=== PATIENT | male | born 1960 | race Two or more races ===

== ENCOUNTER 2024-08-24 09:20 | Emergency (ER) | payer MEDICAID, SELFPAY ==
--- NOTE | 2024-08-24 | XR_ITS ---
MRI abdomen, without contrast. MRCP Date and time of exam: August 24, 2024, 1721 hours INDICATIONS: Elevated total bilirubin, abdominal pain nausea vomiting beginning 2 weeks ago Technique: Multiple axial and coronal images of the abdomen have been obtained with the Siemens 1.5T MRI scanner. Images obtained included T1 weighted transverse images, T2-weighted transverse images, T2-weighted transverse images fat-suppressed, T2 weighted haste fat suppressed transverse images, T1 weighted images, in and out of phase images, T2-weighted coronal images, breath hold, T2 weighted haze coronal images as well as T2 weighted coronal thick slab images, MRCP. Findings: Small benign liver cysts Small gallstones Gallbladder wall is not thickened 3 mm stone in the common bile duct, coronal image 11 Negative for pancreatitis Pancreatic duct is not dilated Spleen not enlarged Perinephric stranding Small right renal cyst IMPRESSION: Cholelithiasis, negative for cholecystitis 3 mm stone in the common bile duct, recommend ERCP follow-up
[2024-08-24 09:21] VITALS: BMI 24.0
[2024-08-24 09:29] VITALS: BP 98/66; PULSE 87; RESP 18; TEMP 36.7; O2SAT 99
--- NOTE | 2024-08-24 10:23 | EKG_ITS ---
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
--- NOTE | 2024-08-24 10:23 | XR_ITS ---
Examination: AP lateral 2 views Technique one AP portable upright chest lateral 2 views Date and time: August 24, 2024, 1035 hrs. Comparison December 23, 2021. Indications: Chest pain shortness of breath today Findings: Normal heart size Lungs are clear. Osseous structures are intact. On the lateral view 15 mm pulmonary nodule overlies the cardiac contour Impression: No pneumonia or pulmonary edema Recommend AP lordotic chest to confirm 15 mm pulmonary nodule
--- NOTE | 2024-08-24 10:30 | PD.EDRME ---
Rapid Medical Screening Exam E Arrival date/time: 08/24/24 09:20 This is a 63-year-old male that comes into the emergency room with a complaint of nausea vomiting diarrhea for the last 2 weeks. Patient states that over the past 2 weeks he has passed out 3 times at home because he was weak. Patient denies chest pain and shortness of breath. Patient complains of dizziness. Patient denies any past medical history. Patient states that the last time he passed out he hit his head pretty hard. I have greeted and performed a focused initial assessment of this patient. Initial appropriate labs ordered at this time. A comprehensive ED assessment and evaluation of the patient and analysis of all test and completion of medical decision making process will be conducted by additional ED provider. Chief Complaint: Fall Time Seen by Provider: 08/24/24 09:29 Vital signs: Vital Signs Temperature 98.0 F 08/24/24 09:29 Pulse Rate 87 08/24/24 09:29 Respiratory Rate 18 08/24/24 09:29 Blood Pressure 98/66 08/24/24 09:29 Pulse Oximetry (%) 99 08/24/24 09:29 Oxygen Delivery Method Room Air 08/24/24 09:29
--- NOTE | 2024-08-24 10:31 | XR_ITS ---
Examination: CT brain head without contrast. 2-D sagittal coronal reconstructions Date and time of exam:August 24, 2024, 10:56 AM Indications: Dizziness syncopal episodes beginning yesterday CTDI: vol (mGy):50.6 DLP: (mGycm):1085 Technique: Multiple CT axial sections of the brain have been obtained, 5 mm slice thickness. Contrast has not been administered. 2-D sagittal, coronal reconstructions have been obtained Low dose protocols were performed. One or more of the following dose reduction techniques were used; automated exposure control, adjustment of the mA and/or KV according to patient size, use of iterative reconstruction technique. Findings: No significant ventricular enlargement. Intra-axial or extra-axial hemorrhage density is not seen. No mass effect or midline shift Basal cisterns are not remarkable. Fourth ventricle is midline. Cranial vault intact. Impression: Negative for acute hemorrhage, mass effect or midline shift Advise clinical correlation follow-up accordingly
[2024-08-24 12:23] LABS: Basophils % (Auto) 0 % (0-2.5); Eosinophils % (Auto) 0 % (0-10); Hematocrit 29.5 % (41.0-53.0); Hemoglobin 10.7 g/dL (13.5-16.0); Immature Granulocytes % (Auto) 0 % (0-0); Immature Granulocytes Auto 0.02 Thou/mm3 (0.00-0.00); Lymphocytes # (Auto) 1.3 Thou/mm3 (1.0-4.8); Lymphocytes % (Auto) 17 % (10-50); Mean Corpuscular HGB Conc 36.3 g/dl (31.0-37.0); Mean Corpuscular Hemoglobin 27.9 pg (25.0-35.0); Mean Corpuscular Volume 77 fL (80-100); Monocytes # (Auto) 0.9 Thou/mm3 (0.0-0.8); Monocytes % (Auto) 12 % (0-12); Neutrophils # (Auto) 5.4 Thou/mm3 (1.8-7.7); Neutrophils % (Auto) 71 % (37-80); Nucleated Red Blood Cell % 0 /100 WBC (0); Platelet Count 132 Thou/mm3 (140-440); Red Blood Count 3.84 Miln/mm3 (4.50-5.90); White Blood Count 7.6 Thou/mm3 (3.8-10.6)
[2024-08-24 12:43] LABS: B-Type Natriuretic Peptide 146 pg/mL (0-100)
[2024-08-24 12:45] LABS: Alanine Aminotransferase 98 U/L (10-49); Albumin, Serum 4.6 gm/dL (3.4-4.8); Albumin/Globulin Ratio 1.3 (1.2-2.2); Alkaline Phosphatase 127 U/L (46-116); Anion Gap 8 (7-16); Aspartate Amino Transferase 310 U/L (0-34); BUN/Creatinine Ratio 7 Ratio (12-20); Bilirubin,Total 3.4 mg/dL (0.3-1.2); Blood Urea Nitrogen 8 mg/dL (9-23); Calcium 8.4 mg/dL (8.3-10.6); Calcium (Corrected) 8.4 mg/dL (8.5-10.1); Carbon Dioxide 30.6 mMol/L (20.0-31.0); Chloride 84 mMol/L (98-107); Creatinine (Component) 1.2 mg/dL (0.6-1.3); Estimated Creatinine Clearance 65.1 mL/min (>60); Globulin 3.6 gm/dL (2.3-3.5); Glucose 109 mg/dL (74-106); Osmolality,Calculated 247 (275-295); Potassium 3.1 mMol/L (3.4-5.1); Sodium 123 mMol/L (136-145); Total Protein 8.2 gm/dL (5.7-8.2); Troponin I < 0.020 ng/mL (0.0-0.045); eGFR > 60 See Note
--- NOTE | 2024-08-24 13:57 | XR_ITS ---
Examination: Abdomen sonogram, Limited Date and time of exam: August 24, 2024 1421 hrs. Indications: Epigastric pain and vomiting beginning 4 days ago Technique: Real-time santillan scale transabdominal sonographic images of the upper abdomen obtained. Findings: Multiple gallstones Normal gallbladder wall. Normal common bile duct 0.4 cm. Pancreatic head 2.0 cm. Hepatomegaly 18.3 cm fatty infiltration no focal liver lesions. Normal hepatopedal portal venous flow Patent IVC Impression: Cholelithiasis, negative for cholecystitis
[2024-08-24 15:45] LABS: Alcohol, Blood Medical < 3.0 mg/dL (0-10.0)
[2024-08-24 16:42] VITALS: BP 102/71; PULSE 90; RESP 12; TEMP 36.7; O2SAT 97
[2024-08-24 16:43] LABS: Collection Type, Urine Voided
[2024-08-24 17:05] LABS: Amphetamine/Methamp Scrn,U Negative (Negative); Barbiturate Screen,Urine Negative (Negative); Benzodiazepines Screen,Urine Negative (Negative); Benzoylecgonine Screen, Ur Negative (Negative); Fentanyl Screen,Urine Negative (Negative); Opiate Screen,Urine Negative (Negative); THC Screen,Urine Negative (Negative)
[2024-08-24 17:08] LABS: Bacteria,Urine Rare; Bilirubin,Urine 1+ (Negative); Blood,Urine 2+ (Negative); Clarity,Urine Turbid (Clear/Hazy); Color,Urine Drk-Orange (Lt Yel-Yel); Culture Indicated,Urine Not Indicated; Glucose, Urine Trace (Negative); Granular Casts,Urine 1 /hpf (0-1); Hyaline Casts,Urine 2 /hpf (0-1); Ketones,Urine Negative (Negative); Leukocyte Esterase,Urine Negative (Negative); Nitrite,Urine Negative (Negative); Protein,Urine 2+ (Neg - Trace); RBC,Urine 30 /hpf (0-3); Specific Gravity,Urine 1.034 (1.001-1.035); Squamous Epithelial Cell,Urine 1 /hpf (0-5); WBC,Urine 1 /hpf (0-5)
--- NOTE | 2024-08-24 17:19 | EDNOTE_ITS ---
<Statement entered by Albertina Mujica MD - 08/25/24 04:32> As co-signing physician, I was present and available for consult prn. I concur with the plan and care as documented by the midlevel provider. ED Fall Injury RME/HPI General Chief Complaint: Fall Stated Complaint: WEAK AND FALLING x 2 WEEKS Time Seen by Provider: 08/24/24 09:29 Arrival date/time: 08/24/24 09:20 RME / HPI RME / HPI Narrative: 63-year-old male patient came in for evaluation regarding right upper abdominal pain, nausea, vomiting diarrhea's been ongoing for the last 2 weeks. Patient has been having dizziness also and passed out about 3 times already at home because he is weak. Patient denies any fever. Denies any shortness of breath denies any chest pain. Patient told me that 1 time he passed and hit his head pretty hard. Patient right upper quadrant pain is described as dull ache, severity moderate. Getting worse for the last few days. Patient also noticed yellow discolored urine. Related Data Home Medications ?Medication ?Instructions ?Recorded ?Confirmed No Known Home Medications 07/30/21 0605/18 Allergies Allergy/AdvReac Type Severity Reaction Status Date / Time No Known Allergies Allergy Verified 08/24/24 09:23 Review of Systems Review of Systems Narrative Review of Systems: Review of system reviewed and within normal limits except mentioned in HPI ED Exam Narrative Physical exam: VITAL SIGNS: Reviewed. GENERAL APPEARANCE: Alert and interactive, follows commands, no acute distress, HEAD AND FACE: Non-traumatic. ENT: PERRL, pink conjunctivitis, eyelid no trauma, Mucous membrane moist. NECK: Supple, nontender, no nuchal rigidity. CHEST: No tenderness, no crepitus, no paradoxical movement, no retractions. LUNGS: Clear, well ventilated, symmetric, no rales, no wheezing, no ronchi, no stridor, good breath sounds bilaterally. HEART: Regular rate, regular rhythm, no murmur, no gallops. ABDOMEN: Soft, positive bowel sounds, nondistended, no guarding, right upper quadrant tenderness, no rebound, no masses, RECTAL: Deferred. GENITAL: Deferred. NEUROLOGICAL: Gross motor function intact sensory function intact, Appropriate for age. MUSCULOSKELETAL: low back nontender, full range of motion. EXTREMITIES: Nontender, full range of motion. SKIN: Color slightly jaundiced, dry, no rash, no lacerations, no abrasions, no contusions. LYMPHATICS: Deferred. Course Quality Measures none Orders Category Date Time Status EKG (ED ONLY) *Do not use* NOW Care 08/24/24 10:24 Completed MRI Screening NOW Care 08/24/24 16:[address] head/brain wo con Stat Exams 08/24/24 10:31 Completed EKG (ED Only) Stat Exams 08/24/24 10:23 Draft MR MRCP Stat Exams 08/24/24 Completed US gall bladder Stat Exams 08/24/24 13:57 Completed XR chest 2V Stat Exams 08/24/24 10:23 Completed Alcohol, Blood Medical Stat Lab 08/24/24 14:49 Completed BNP [B-Type Natriuretic Peptide] Stat Lab 08/24/24 12:02 Completed Bilirubin,Direct Stat Lab 08/24/24 18:03 Completed CBC Stat Lab 08/24/24 12:02 Completed Comprehensive Metabolic Panel Stat Lab 08/24/24 12:02 Completed Drug Screen,Urine Stat Lab 08/24/24 16:38 Completed Hepatitis Acute Panel Stat Lab 08/24/24 18:03 Received Troponin I Stat Lab 08/24/24 12:02 Completed Urinalysis, C/S if Indicated Stat Lab 08/24/24 16:38 Completed Ondansetron Inj [Zofran Inj] Med 08/24/24 17:22 Discontinued 4 mg IVP X1 ONE Potassium Chloride [K-Dur] Med 08/24/24 13:57 Discontinued 40 meq PO X1 ONE Sodium Chloride 0.9% 1000 ml [Ns] 1,000 ml Med 08/24/24 13:57 Discontinued IV 999 mls/hr Vital Signs Vital signs: Vital Signs Temperature 98.0 F 08/24/24 09:29 Pulse Rate 87 08/24/24 09:29 Respiratory Rate 18 08/24/24 09:29 Blood Pressure 98/66 08/24/24 09:29 Pulse Oximetry (%) 99 08/24/24 09:29 Oxygen Delivery Method Room Air 08/24/24 09:29 Fall MDM Narrative MDM Narrative:: 63-year-old male patient came in for evaluation regarding right upper abdominal pain, nausea, vomiting diarrhea's been ongoing for the last 2 weeks. Patient has been having dizziness also and passed out about 3 times already at home because he is weak. Patient denies any fever. Denies any shortness of breath denies any chest pain. Patient told me that 1 time he passed and hit his head pretty hard. Patient right upper quadrant pain is described as dull ache, severity moderate. Getting worse for the last few days. Patient also noticed yellow discolored urine. Patient CBC came back unremarkable except for slight anemia 10.7 CMP showed sodium 123, potassium 3.1 patient received 1 L of IV NS, and potassium replacement. Patient total bili was noted to be 3.7, and direct bili of 1.9 AST of 310 ALT of 98, alkaline phos 127. MRCP showed Cholelithiasis, negative for cholecystitis 3 mm stone in the common bile duct, recommend ERCP follow-up Pending transfer for ERCP [place] at 11 PM for final disposition Patient data External records reviewed:: None Clinical information provided by:: patient Social determinants that could affect healthcare access:: none Patient has the following chronic illnesses:: None How is presenting disease/condition affected by chronic disease/condition?: no chronic disease Evaluation data The following diagnostics were reviewed and interpreted by me:: lab results and radiology exam(s) Lab and/or radiology exams considered but not ordered:: None Interpretation Summary: See results MDM Medications / Prescriptions Medications or Prescriptions considered but not ordered:: None Medication administrations:: Medication Administration History Discontinued Medications Sodium Chloride (Ns) 1,000 mls @ 999 mls/hr IV .Q1H1M ONE Stop: 08/24/24 14:57 Last Infusion: 08/24/24 19:45 Dose: Infused Documented By: Admin: 08/24/24 18:33 Dose: 999 mls/hr Documented By: PILAR Ondansetron HCl (Ondansetron Inj 2 Mg/Ml Inj 2 Ml) 4 mg IVP X1 ONE; Protocol Stop: 08/24/24 17:23 Last Admin: 08/24/24 18:34 Dose: 4 mg Documented By: PILAR Potassium Chloride (Potassium Chloride 20 Meq Tabcr) 40 meq PO X1 ONE Stop: 08/24/24 13:58 Last Admin: 08/24/24 18:32 Dose: 40 meq Documented By: CG Potassium replacement Zofran IV fluids Consultations Consultation(s) initiated? (list below): No Diagnosis Fall Differential Diagnosis: other (Generalized weakness, hyponatremia, choledocholithiasis, hyperbilirubinemia, cholelithiasis) Most likely diagnosis given after review of the tests above:: Generalized weakness, hyponatremia, choledocholithiasis, hyperbilirubinemia, cho lelithiasis Admission Indicated Admission indicated?: not indicated (Pending transfer) Admission Request Was there a request for admission?: No Disposition Plan Disposition Plan: Transfer Discharge Plan Prescriptions/Referrals Prescriptions/Med Rec: No Action No Known Home Medications Referrals: Seth Denney PA-C [Primary Care Provider] - In 1 week Problem List Clinical Impression: Cholelithiasis, Choledocholithiasis, Acute hyponatremia, Total bilirubin, eleva toño Patient/Caregiver Discharge Instructions Print Language: Bruneian
[2024-08-24] MEDS: POTASSIUM CHLORIDE 20 mEq TABCR 40 MEQ PO (18:32)
[2024-08-24] MEDS: SODIUM CHLORIDE 0.9% 1000 ML 1,000 ML 999 ML IV (18:33)
[2024-08-24] MEDS: ONDANSETRON INJ 2 MG/ML INJ 2 ML 4 MG IVP (18:34)
[2024-08-24 18:41] LABS: Bilirubin,Direct 1.9 mg/dL (0.0-0.3)
[2024-08-24 19:25] VITALS: BP 131/75; PULSE 85; RESP 18; TEMP 37; O2SAT 98
[2024-08-24 22:11] VITALS: BP 147/83; PULSE 86; RESP 16; TEMP 36.8; O2SAT 99
--- NOTE | 2024-08-24 23:13 | PC.NURSE ---
[facility] contacted for GI transfer. Pt is needing an ERCP. Sheri at transfer center was notified packet was sent. they are to reach back after consulting with GI
--- NOTE | 2024-08-24 23:18 | PC.NURSE ---
2318, accepted to [facility], ed to ed, , report #[id number], spoke to mario
--- NOTE | 2024-08-24 23:24 | EDNOTE_ITS ---
Emergency Room Addendum Addendum Narrative: 2300: Care assumed from Tate Edwards NP (emergency provider). Past medical, surgical, social and family history reviewed. Vitals and home medications reviewed. Results and treatment plan discussed. They will assume the care of the patient at this time and will follow the patient, pending transfer. The following addendum documentation note is intended to reflect any pending information, findings, or radiology results not included in the patient?s ini tial chart by the previous shift scribe. 2307: Discussed with [facility] for transfer. Reviewed the patient?s HPI, PMHx, lab and/or radiology results. Discussed treatment plan and need for ERCP. Will consult transfer. 2320: Patient accepted to [facility] for transfer and ERCP. 0217: Departed from ED with EMS for transfer to [facility].
[2024-08-25 02:06] VITALS: BP 133/83; PULSE 76; RESP 18; TEMP 36.8; O2SAT 97
--- NOTE | 2024-08-25 02:11 | PC.NURSE ---
CALLED REPORT TO [facility] SPOKE TO PEDRO HERNANDEZ.
[2024-08-25 20:14] LABS: Hepatitis A Antibody IgM Non Reactive (Non React); Hepatitis B Core Antibody IgM Non Reactive (Non React); Hepatitis B Surface Antigen Non Reactive (Non React); Hepatitis C Antibody Non Reactive (Non React)
== END 2024-08-25 02:14 | disposition short-term general hospital (02) ==
PROVIDERS: Nurse Practitioner Family; Emergency Provider Emergency Medicine; PCP Physician Assistant
DX: K80.70 Calculus of gallbladder and bile duct without cholecystitis without obstruction (principal); E87.1 Hypo-osmolality and hyponatremia
CPT/HCPCS: 36415; 70450; 71046; 76705; 80053; 80074; 80307; 80320; 81001; 82248; 83880; 84484; 85025; 93005; 96361; 96374; 99285; J2405; J7030; S8037; 74181; A9270; G0480